=== PATIENT | female | born 1975 | race Hispanic/Latino ===

== ENCOUNTER 2022-09-02 13:13 | Emergency (ER) | payer OTHER ==
[2022-09-02] MEDS ORDERED: ACETAMINOPHEN 500 MG TABLET PO ONE (14:30)
[2022-09-02] MEDS ORDERED: KETOROLAC 15MG/ML VIAL (15MG/ML) IM ONE (14:30)
[2022-09-02 15:08] VITALS: BP 131/68
== END 2022-09-02 16:04 | disposition home or self-care (01) ==
LOC: EDH 13:13
DX: M79.641 Pain in right hand (principal); M79.642 Pain in left hand; M79.89 Other specified soft tissue disorders; Z98.890 Other specified postprocedural states
CPT/HCPCS: 99283; 96372; J1885